=== PATIENT | female | born 1970 | race Caucasian/White ===

== ENCOUNTER → 2020-01-31 | Outpatient (CLI) | payer BC ==
[~2020-01-31] MED LIST: ADDERALL; COLACE 100100 MG/CAP PO; DOXYCYCLINE 10100 MG PO; K-DUR 2020 MEQ PO; LORTAB 5/500 501 TAB PO; MOTRIN 800800 MG/TAB PO; NORCO 325 MG-51 TAB PO; NORCO 325 MG-7.1 TAB PO; PHENERGAN 25 TA25 MG PO; PREDNISONE10 MG PO; TUSS PO; ZOFRAN 4MG T4 MG/TAB PO
== END ==
LOC: COL.RAD 14:10
DX: R10.32 Left lower quadrant pain (principal); R31.9 Hematuria, unspecified; Z90.710 Acquired absence of both cervix and uterus
CPT/HCPCS: Q9967

== ENCOUNTER → 2020-06-13 | Outpatient (CLI) | payer BC | LOC: MC.RAD 10:22 | DX: Z12.31 Encounter for screening mammogram for malignant neoplasm of breast (principal); Z98.82 Breast implant status ==